=== PATIENT | male | born 1950 | race Caucasian/White ===

== ENCOUNTER 2016-08-16 18:08 | Emergency (ER) | payer MEDICARE, OTHER ==
--- NOTE | ~2016-08-16 | ER ---
PATIENT'S NAME: NIMCO BERNSTEIN [facility] AGE: 65 Y [address] ROOM: [place] [address] LOCATION: [facility] ADMIT DATE: 08/16/2016 ER/Outpatient Report DISCHARGE DATE: 08/16/2016 FAMILY PHYSICIAN: PHYSICIAN, NO ATTENDING PHYSICIAN: Doug Bryan Admission date and time are documented on the medical record. I saw the patient at 1835 hours. CHIEF COMPLAINT: Vertigo and dizziness. HISTORY OF PRESENT ILLNESS: This patient is a 65-year-old male who around 0930 hours this morning was sitting on a couch watching TV when he got acute onset of vertigo. The room was spinning. He got nauseated, but had no vomiting. He noticed that he was kind of unstable with his walking and kind of tend to walk to the right. No headache, eyes, ears, nose, throat, neck, or spine pain. No chest pain or shortness of breath. No fall or trauma. No lightheadedness, no syncope, or no near syncope. No recent colds, coughs, flus, fever, chills, or sweats. No abdominal pain. No vomiting or diarrhea. No urinary frequency, urgency, or dysuria. No incontinence. No joint or muscle swelling, redness, or pain. No skin eruptions or rash. No known history of neuro changes or psych issues. He does have insulin-dependent diabetes mellitus. HOME MEDICATIONS: See attached medication list. ALLERGIES: NONE. SOCIAL HISTORY: The patient smokes a pack of cigarettes per day, nondrinker, no other illicit drug use. SIGNIFICANT PAST MEDICAL HISTORY: Degenerative osteoarthritis, chronic abdominal pain, insulin-dependent diabetes mellitus, and tobacco abuse. OPERATIONS: Knee surgery and appendectomy. REVIEW OF SYSTEMS: All systems reviewed by me are negative with the exception of those discussed in the history of present illness. PATIENT'S NAME: NIMCO BERNSTEIN [facility] AGE: 65 Y [address] ROOM: [place] [address] LOCATION: [facility] ADMIT DATE: 08/16/2016 ER/Outpatient Report DISCHARGE DATE: 08/16/2016 FAMILY PHYSICIAN: PHYSICIAN, NO ATTENDING PHYSICIAN: Doug Bryan PHYSICAL EXAMINATION: VITAL SIGNS: Temperature 97.5, pulse 75, regular, respirations 14, blood pressure 149/86, and O2 sat on room air was 91%. [place] Coma Scale was 15. HEAD: Normocephalic. No abrasion, contusion, laceration, or swelling of scalp or face. EYES: Extraocular muscles intact. PERRL. Mild nystagmus. EARS: Clear TMs bilaterally. NOSE: Clear. THROAT: Clear. Mucous membranes moist. Teeth, jaw intact. NECK: No nuchal rigidity. No thyromegaly or cervical adenopathy. No carotid bruits. No tenderness. SPINE: Nontender. No deformity. LUNGS: Clear. No rales, rhonchi, or wheezes. HEART: Regular. Pulses are palpable. ABDOMEN: Soft, nondistended, nontender. Good bowel tones. No organomegaly or abnormal mass palpable. No CVA tenderness. PELVIS: Stable, nontender. EXTREMITIES: Moves all 4 extremities. No peripheral edema, cyanosis, or deformity. NEURO: Cranial nerves intact. No lateralizing sign. The patient is awake, cooperative. Motor and sensory intact. TORIBIO stroke scale was 0. SKIN: Clear. No skin eruptions or rash. LABORATORY DATA: EKG showed poor R-wave progression. No acute ST-elevation, ischemic change, or arrhythmia. Chest x-ray showed no acute infiltrate or changes. We will review x-ray with the radiologist. CT scan of the head showed no intracranial bleed, midline shift, mass effect, or skull fracture. CT scan was read by Radiology, see dictated transcribed report. Laboratory white count was 14,300, 74 segs, 18 lymphs, 6 monos, 2 eos, hemoglobin is 14.6 with hematocrit 45.2, and platelet count is 263,000. Sed rate is 14, pro-time is 10.9 with an INR 1.0. Ammonia was 18. Procalcitonin was less than 0.05. CRP was 0.31. TSH was 2.1. Pro-BNP was 39. Lactate was 1.7. Venous pH was 7.42. CMS was normal except for an elevated glucose 150. IMPRESSION: 1. Acute onset of vertigo, most likely secondary to benign positional vertigo. 2. Insulin-dependent diabetes mellitus. PLAN: The patient was given 4 mg of Valium IV and 25 mg of Antivert orally here in the emergency department. Discharged home. Observation. Activity as tolerated. Fluids and diet as tolerated. Avoid sudden positional changes. PATIENT'S NAME: NIMCO BERNSTEIN [facility] AGE: 65 Y [address] ROOM: [place] [address] LOCATION: [facility] ADMIT DATE: 08/16/2016 ER/Outpatient Report DISCHARGE DATE: 08/16/2016 FAMILY PHYSICIAN: PHYSICIAN, NO ATTENDING PHYSICIAN: Doug Bryan Continue present home medications and care. Stop smoking. Valium 2 mg 3 times a day for a week. Antivert 25 mg 3 times a day for a week. Follow up with personal physician in 7-10 days or sooner if needed. Discussion ensued with the patient concerning my findings and recommendations, he understands. MD LENA PERSAUD/modl /[id number] d: 08/16/16 2337 t: 08/17/16 1813, OUTPATIENT REPORT
[2016-08-16 19:13] LABS: BASOPHIL # 0.1 K/uL (0.0-0.2); BASOPHIL % 0.4 %; EOSINOPHIL # 0.3 K/uL (0.0-0.5); EOSINOPHIL % 1.8 %; HEMATOCRIT 45.2 % (37.0-53.0); HEMOGLOBIN 14.6 g/dL (11.0-16.0); IMMATURE GRANULOCYTE # 0.1 K/uL (0.0-0.3); IMMATURE GRANULOCYTE % 0.4 %; LYMPHOCYTE # 2.5 K/uL (0.8-4.0); LYMPHOCYTE % 17.6 %; MCH 29.1 pg (27.0-34.0); MCHC 32.3 gm/dL (32.0-36.5); MCV 90.2 fl (83.0-98.0); MONOCYTE # 0.9 K/uL (0.0-1.0); MPV 9.9 fl (9.4-12.4); NEUTROPHIL # (ANC) 10.5 K/uL (1.4-9.0); NEUTROPHIL % 73.8 %; NRBC % 0 /100WBC (0-0.00); PLATELET COUNT 263 K/uL (150-450); RBC 5.01 M/uL (3.50-5.50); WBC 14.3 K/uL (4.0-11.0)
[2016-08-16 19:19] LABS: PROTIME 10.9 SECONDS (9.6-11.1)
[2016-08-16 19:37] LABS: ALBUMIN 3.8 gm/dL (3.5-5.0); ALK PHOS 88 IU/L (33-138); ALT 36 IU/L (12-78); BLOOD UREA NITROGEN 20 mg/dL (6-24); CALCIUM 8.9 mg/dL (8.5-10.5); CHLORIDE 106 mMol/L (96-110); CO2 25 mMol/L (22-32); CPK 118 IU/L (35-332); CREATININE 1.1 mg/dL (0.6-1.3); ESTIMATED GFR (MDRD EQUATION) > 60; SODIUM 142 mMol/L (135-145); TOTAL BILIRUBIN 0.3 mg/dL (0.0-1.5); TOTAL PROTEIN 7.1 g/dL (6.0-8.4)
[2016-08-16 19:41] LABS: ANION GAP 15.1 (10.0-19.0); AST 22 IU/L (10-40); POTASSIUM 4.1 mMol/L (3.7-5.1)
[2016-08-16 20:03] LABS: BICARBONATE 27.9 mmol/L (18.0-23.0); LACTATE 1.7 mEq/L (0.50-1.60); PCO2 43 mmHg (35-45); PO2 60 mmHg (80-90)
== END 2016-08-16 20:41 | disposition disaster alternative care site (69) ==
LOC: GMED 18:08
PROVIDERS: Emergency Medicine
DX: R42 Dizziness and giddiness (principal); E11.9 Type 2 diabetes mellitus without complications; M19.90 Unspecified osteoarthritis, unspecified site; F17.210 Nicotine dependence, cigarettes, uncomplicated; Z79.2 Long term (current) use of antibiotics; Z79.84 Long term (current) use of oral hypoglycemic drugs; Z79.899 Other long term (current) drug therapy
CPT/HCPCS: J3360